=== PATIENT | female | born 1960 | race Caucasian/White ===

== ENCOUNTER → 2018-03-02 | Outpatient (CLI) | payer OTHER ==
[~2018-03-02] MED LIST: CIPR-225 PO; HYDR1TAB PO; OLME1TAB28 PO; POLY119P5 PO; ZLP10T PO
[2018-03-02 06:58] LABS: BUN/CREATININE RATIO 11; CREATININE SERUM 0.81 MG/DL (0.60-1.30); GFR ESTIMATED > 60
== END ==
LOC: RAD 06:20
PROVIDERS: ATTEND Family Medicine
DX: Z53.8 Procedure and treatment not carried out for other reasons (principal); M54.16 Radiculopathy, lumbar region
CPT/HCPCS: 36415; 82565; 84520

== ENCOUNTER → 2018-03-09 | Outpatient (CLI) | payer OTHER ==
[~2018-03-09] MED LIST changes: +IOHEXOL 350 MG/ML 100 ML (OMNIPAQUE 350) VIAL IV ONE; +NS 250 ML (IVPB) BAG IV ONE
[2018-03-09 08:23] LABS: BUN/CREATININE RATIO 18; CREATININE SERUM 0.87 MG/DL (0.60-1.30); GFR ESTIMATED > 60
--- NOTE | 2018-03-09 09:13 | Diagnostic Imaging Report ---
PROCEDURE: CT neck soft tissue with contrast. TECHNIQUE: Multiple contiguous axial images were obtained through the neck after the administration of contrast. INDICATION: Scratchiness and pain in the throat. Comparison is made with prior CT soft tissue neck on 05/06/2010. The visualized intracranial structures are unremarkable. The posterior nasopharynx and oropharynx are unremarkable. Parapharyngeal fat planes are preserved. Larynx grossly unremarkable. The thyroid gland appears to be very small. Submandibular and parotid glands appear to be symmetric bilaterally. Normal-sized lymph nodes in the jugulodigastric region are noted. Posterior cervical chain is unremarkable. No fluid collection is seen. IMPRESSION: Essentially unremarkable CT of the soft tissues of the neck. Dictated by: Dictated on workstation # [id number]
== END ==
LOC: RAD 07:57
PROVIDERS: ATTEND Otolaryngology Otolaryngology/Facial Plastic Surgery
DX: S10.11XA Abrasion of throat, initial encounter (principal); J38.1 Polyp of vocal cord and larynx; J38.7 Other diseases of larynx
CPT/HCPCS: 36415; 70491; 82565; 84520

== ENCOUNTER → 2018-03-29 | Outpatient (CLI) | payer OTHER ==
[~2018-03-29] MED LIST changes: -IOHEXOL 350 MG/ML 100 ML (OMNIPAQUE 350) VIAL IV ONE; -NS 250 ML (IVPB) BAG IV ONE
== END ==
LOC: PREOP 12:47
PROVIDERS: ATTEND Otolaryngology Otolaryngology/Facial Plastic Surgery
DX: Z01.818 Encounter for other preprocedural examination (principal); J38.7 Other diseases of larynx

== ENCOUNTER 2018-03-30 06:20 | Day surgery (SDC) | payer OTHER ==
[~2018-03-30] VITALS: Ht 167.6 cm; Wt 86.2 kg
--- NOTE | 2018-03-30 06:59 | Progress Note-Pre Operative ---
Pre-Operative Progress Note H&P Reviewed The H&P was reviewed, patient examined and no changes noted. Date Seen by Provider: Mar 30, 2018 Time Seen by Provider: 06:45 Date H&P Reviewed: Mar 30, 2018 Time H&P Reviewed: 06:45 Pre-Operative Diagnosis: Epiglottic Lesion ORTEGA BLAIR MD Mar 30, 2018 6:59 am
[2018-03-30] MEDS ORDERED: LIDOCAINE/EPI 1%-1:200,000 (XYLOCAINE) 10 ML VIAL ONE (07:20)
[2018-03-30 07:39] LABS: BASOPHILS % (AUTO) 1 % (0-10); EOSINOPHILS # (AUTO) 0.1 10^3/uL (0.0-0.3); EOSINOPHILS % (AUTO) 2 % (0-10); HEMATOCRIT 41 % (35-52); HEMOGLOBIN 14.3 G/DL (11.5-16.0); LYMPHOCYTES # (AUTO) 1.6 X 10^3 (1.0-4.0); LYMPHOCYTES % (AUTO) 27 % (12-44); MEAN CORPUSCULAR HEMOGLOBIN 33 PG (25-34); MEAN CORPUSCULAR HGB CONC 35 G/DL (32-36); MEAN CORPUSCULAR VOLUME 95 FL (80-99); MEAN PLATELET VOLUME 10.7 FL (7.4-10.4); MONOCYTES # (AUTO) 0.4 X 10^3 (0.0-1.0); MONOCYTES % (AUTO) 7 % (0-12); NEUTROPHILS # (AUTO) 3.7 X 10^3 (1.8-7.8); NEUTROPHILS % (AUTO) 63 % (42-75); PLATELET COUNT 205 10^3/uL (130-400); RED BLOOD COUNT 4.28 10^6/uL (4.35-5.85); RED CELL DISTRIBUTION WIDTH 13.3 % (10.0-14.5); WHITE BLOOD COUNT 5.8 10^3/uL (4.3-11.0)
[2018-03-30 07:44] VITALS: BP 100/80
[2018-03-30] MEDS ORDERED: LACTATED RINGERS 1,000 ML IV PRN (07:48)
[2018-03-30] MEDS ORDERED: fentaNYL INJECTION 100 MCG/2 ML AMP ONE (07:50)
[2018-03-30] MEDS ORDERED: MIDAZOLAM 2 MG/2 ML (VERSED) VIAL ONE (07:50)
--- NOTE | 2018-03-30 08:35 | Progress Note-Post Operative ---
Post-Operative Progess Note Surgeon (s)/Tubing Supervisor (s) Surgeon ORTEGA BLAIR MD Tubing Supervisor n/a Pre-Operative Diagnosis Epiglottic Lesion Post-Operative Diagnosis same Post-Op Procedure Note Date of Procedure: Mar 30, 2018 Name of Procedure Performed: [id number] laryngoscopy with biopsy of epiglottis Description & Findings Description and Findings: n/a Anesthesia Type get Estimated Blood Loss minimal Packing none. Specimen(s) collected/removed epiglottic biopsy ORTEGA BLAIR MD Mar 30, 2018 8:34 am
[2018-03-30] MEDS ORDERED: DEXAMETHASONE 10 MG/ML (DECADRON) 1 ML VIAL ONE (08:36)
[2018-03-30] MEDS ORDERED: ROCURONIUM 10 MG/ML 5 ML SYRINGE IV ONE (08:36)
[2018-03-30] MEDS ORDERED: GLYCOPYRROLATE 0.2 MG/ML (ROBINUL) 2 ML VIAL ONE (08:36)
[2018-03-30] MEDS ORDERED: LIDOCAINE PF 2% 5 ML (XYLOCAINE) VIAL ONE (08:36)
[2018-03-30] MEDS ORDERED: ONDANSETRON 4 MG/2 ML (SDV) Z0FRAN ONE (08:36)
[2018-03-30] MEDS ORDERED: NEOSTIGMINE 1 MG/ML 5 ML SYRINGE ONE (08:36)
[2018-03-30] MEDS ORDERED: proPOfol 200 MG/20 ML (DIPRIVAN) VIAL IV ONE (08:36)
[2018-03-30] MEDS ORDERED: SEVOFLURANE (ULTANE) 15 ML INHAL SOLN ONE (08:36)
[2018-03-30] MEDS ORDERED: ACETAMINOPHEN 325 MG TABLET PO PRN (08:45)
[2018-03-30] MEDS ORDERED: PROMETHAZINE INJ 25 MG/ML (PHENERGAN) AMP IV PRN (08:45)
[2018-03-30] MEDS ORDERED: HYDROcodone/APAP 5 MG/325 MG (LORTAB) TAB PO PRN (08:45)
[2018-03-30] MEDS ORDERED: ONDANSETRON 4 MG/2 ML (SDV) Z0FRAN IVP PRN (09:00)
[2018-03-30] MEDS ORDERED: morphine INJ 10 MG/ML 1ML (SYR OR VIAL) IVP PRN (09:00)
[2018-03-30] MEDS: morphine INJ 10 MG/ML 1ML (SYR OR VIAL) IVP PRN ×2 (09:20→09:25)
[2018-03-30 10:00] VITALS: BP 123/84
[2018-03-30 10:30] VITALS: BP 114/53
[2018-03-30 11:00] VITALS: BP 122/52
[2018-03-30 11:40] VITALS: BP 122/52
[2018-03-30 11:44] VITALS: BP 122/52
--- NOTE | 2018-03-30 13:14 | Anesthesia-General Post-Op ---
General Patient Condition Mental Status/LOC: Same as Preop Cardiovascular: Satisfactory Nausea/Vomiting: Absent Respiratory: Satisfactory Pain: Controlled Complications: Absent Post Op Complications Complications None Follow Up Care/Instructions Patient Instructions None needed. Anesthesia/Patient Condition Patient Condition Patient is doing well, no complaints, stable vital signs, no apparent adverse anesthesia problems. No complications reported per nursing. VERNELL RENDON CRNA Mar 30, 2018 13:14
--- OUTSIDE RECORDS SUMMARY | 2018-03-31 03:29 | XMS REPORT | Continuity of Care Document ---
Author Author [facility] Organization [facility] Address Unknown Phone Unavailable Allergies Active Description Code Type Severity Reaction Onset Reported/Identified Relationship to Patient Clinical Status Yes No Known Drug Allergies [id number] Drug Allergy Unknown N/A 08/13/2007 Medications There is no data. Problems Date Dx Coded Attending Type Code Diagnosis Diagnosed By 11/21/2014 DENNIS BURCH MD Ot 244.9 11/21/2014 DENNIS BURCH MD Ot 278.01 11/21/2014 DENNIS BURCH MD Ot 401.9 11/21/2014 DENNIS BURCH MD Ot V72.81 12/04/2014 DENNIS BURCH MD Ot 244.9 12/04/2014 DENNIS BURCH MD Ot 278.01 12/04/2014 DENNIS BURCH MD Ot 401.9 12/04/2014 DENNIS BURCH MD Ot V72.81 11/04/2015 Ot 796.4 11/04/2015 Ot 242.90 11/04/2015 DENNIS BURCH MD Ot 244.9 11/04/2015 DENNIS BURCH MD Ot 278.01 11/04/2015 DENNIS BURCH MD Ot 401.9 11/04/2015 DENNIS BURCH MD Ot V72.81 11/04/2015 Ot 796.4 11/04/2015 Ot 242.90 11/04/2015 DENNIS BURCH MD Ot 244.9 11/04/2015 DENNIS BURCH MD Ot 278.01 11/04/2015 DENNIS BURCH MD Ot 401.9 11/04/2015 DENNIS BURCH MD Ot V72.81 11/04/2015 JAIRO FERNANDEZ, MITZI Auguste Ot F17.210 NICOTINE DEPENDENCE, CIGARETTES, UNCOMPL 11/04/2015 MITZI GILL MD Ot K59.00 CONSTIPATION, UNSPECIFIED 11/04/2015 MITZI GILL MD Ot N39.0 URINARY TRACT INFECTION, SITE NOT SPECIF 04/28/2016 Ot 796.4 ABN CLINICAL FINDING NEC 04/28/2016 Ot 242.90 THYROTOX NOS NO CRISIS 04/28/2016 DENNIS BURCH MD Ot 244.9 HYPOTHYROIDISM NOS 04/28/2016 DENNIS BURCH MD Ot 278.01 MORBID OBESITY 04/28/2016 DENNIS BURCH MD Ot 401.9 HYPERTENSION NOS 04/28/2016 DENNIS BURCH MD Ot V72.81 [id number] CARDIOVASCULAR 04/29/2016 Ot 796.4 ABN CLINICAL FINDING NEC 04/29/2016 Ot 242.90 THYROTOX NOS NO CRISIS 04/29/2016 DENNIS BURCH MD Ot 244.9 HYPOTHYROIDISM NOS 04/29/2016 DENNIS BURCH MD Ot 278.01 MORBID OBESITY 04/29/2016 DENNIS BURCH MD Ot 401.9 HYPERTENSION NOS 04/29/2016 DENNIS BURCH MD Ot V72.81 [id number] CARDIOVASCULAR 02/21/2018 DENNIS BURCH MD Ot 244.9 HYPOTHYROIDISM NOS 02/21/2018 DENNIS BURCH MD Ot 278.01 MORBID OBESITY 02/21/2018 DENNIS BURCH MD Ot 401.9 HYPERTENSION NOS 02/21/2018 DENNIS BURCH MD Ot V72.81 [id number]-[id number] CARDIOVASCULAR 02/22/2018 MARIPOSA TREIVNO MD Ot J02.9 ACUTE PHARYNGITIS, UNSPECIFIED 02/22/2018 MARIPOSA TREVINO MD Ot Z87.891 PERSONAL HISTORY OF NICOTINE DEPENDENCE 02/22/2018 MARIPOSA TREVINO MD Ot J02.9 ACUTE PHARYNGITIS, UNSPECIFIED 02/22/2018 MARIPOSA TREVINO MD Ot Z87.891 PERSONAL HISTORY OF NICOTINE DEPENDENCE 03/05/2018 MARIPOSA TREVINO MD Ot M54.16 RADICULOPATHY, LUMBAR REGION 03/05/2018 MARIPOAS TREVINO MD Ot Z53.8 PROCEDURE AND TREATMENT NOT CARRIED OUT 03/08/2018 MARIPOSA TREVINO MD Ot M54.16 RADICULOPATHY, LUMBAR REGION 03/08/2018 MARIPOSA TREVINO MD, Ot Z53.8 PROCEDURE AND TREATMENT NOT CARRIED OUT 03/12/2018 ORTEGA BLAIR MD, Ot J38.1 POLYP OF VOCAL CORD AND LARYNX 03/12/2018 ORTEGA BLAIR MD, Ot J38.7 OTHER DISEASES OF LARYNX 03/12/2018 ORTEGA BLAIR MD Ot S10.11XA ABRASION OF THROAT, INITIAL ENCOUNTER 03/15/2018 ORTEGA BLAIR MD, Ot J38.1 POLYP OF VOCAL CORD AND LARYNX 03/15/2018 ORTEGA BLAIR MD, Ot J38.7 OTHER DISEASES OF LARYNX 03/15/2018 ORTEGA BLAIR MD Ot S10.11XA ABRASION OF THROAT, INITIAL ENCOUNTER Procedures There is no data. Results Test Result Range [id number] - 03/02/18 06:35 Serum or plasma urea nitrogen measurement (mass/volume) 9 mg/dL 7-18 Serum or plasma creatinine measurement (mass/volume) 0.81 mg/dL 0.60-1.30 Serum or plasma urea nitrogen/creatinine mass ratio 11 NRG Serum or plasma creatinine measurement with calculation of estimated glomerular filtration rate > NRG [id number] - 03/09/18 08:06 Serum or plasma urea nitrogen measurement (mass/volume) 16 mg/dL 7-18 Serum or plasma creatinine measurement (mass/volume) 0.87 mg/dL 0.60-1.30 Serum or plasma urea nitrogen/creatinine mass ratio 18 NRG Serum or plasma creatinine measurement with calculation of estimated glomerular filtration rate > NRG Encounters ACCT No. Visit Date/Time Discharge Status Pt. Type Provider Facility Loc./Unit Complaint [id number] 03/09/2018 07:57:00 03/09/2018 23:59:59 CLS Outpatient ORTEGA BLAIR MD [facility] RAD VOCAL CORD POLYPS, EPIGLOTTIS CYST [id number] 03/02/2018 06:20:00 03/02/2018 23:59:59 CLS Outpatient MARIPOSA TREVINO MD [facility] RAD PAIN,RADICULAR,LUMBAR [id number] 02/21/2018 11:49:00 02/21/2018 23:59:59 CLS Outpatient MARIPOSA TREVINO MD [facility] RAD SORE THROAT [id number] 11/04/2015 02:36:00 11/04/2015 05:47:00 DIS Emergency JAIRO FERNANDEZ, MITZI Auguste [facility] ER RT SIDE PAIN [id number] 11/20/2014 11:29:00 11/20/2014 23:59:59 CLS Outpatient MARCIN FERNANDEZ, DENNIS Seo [facility] CARD PREOP CLEARANCE, MILD HTN,MORBID OBESITY, HYPOTHYR [id number] 07/26/2012 08:16:00 Document Registration [id number] 03/22/2012 16:03:00 Document Registration
== END 2018-03-30 11:44 | disposition home or self-care (01) ==
LOC: SDC 06:20
PROVIDERS: ATTEND Otolaryngology Otolaryngology/Facial Plastic Surgery
DX: C32.1 Malignant neoplasm of supraglottis (principal); G47.33 Obstructive sleep apnea (adult) (pediatric); F17.210 Nicotine dependence, cigarettes, uncomplicated
CPT/HCPCS: 36415; 85025; 87081; 93005

== ENCOUNTER → 2018-04-10 | Outpatient (CLI) | payer OTHER ==
--- NOTE | 2018-04-10 15:37 | Diagnostic Imaging Report ---
INDICATION: Squamous cell carcinoma of the epiglottis, initial staging. Serum blood glucose level at the time of injection was 91 mg/dL. Patient was administered 14 mCi F18-FDG intravenously in the right antecubital location and PET imaging was performed from the top of the skull through the mid thighs. Noncontrast CT was also performed for attenuation correction and anatomic correlation. No prior PET CT studies available for comparison. Comparison is made with prior conventional neck CT from 03/09/2018. Symmetric activity within the brain is identified. Normal activity within Waldeyer's ring is identified. There appears to be very slight thickening of the epiglottis at the base on the right and low-level activity at this location is seen with SUVmax of approximately 2.6. Normal physiologic activity is identified in the left paravertebral musculature consistent with normal physiologic muscular activity. No hypermetabolic lymph nodes are seen in the neck. No hypermetabolic foci in the chest, abdomen or pelvis is seen. There is physiologic activity in the GI and tracts. IMPRESSION: Very mild thickening of the epiglottis, as described, with low-level hypermetabolism. No hypermetabolic cervical lymphadenopathy is seen to suggest metastatic disease. Dictated by: Dictated on workstation # [id number]
== END ==
LOC: RAD 09:56
PROVIDERS: ATTEND Otolaryngology Otolaryngology/Facial Plastic Surgery
DX: C32.1 Malignant neoplasm of supraglottis (principal)

== ENCOUNTER 2018-06-18 07:41 | Outpatient (RCR) | payer OTHER ==
[2018-04-19 16:44] LABS: BUN/CREATININE RATIO 14; CREATININE SERUM 0.78 MG/DL (0.60-1.30); GFR ESTIMATED > 60
== END 2018-07-11 11:15 | disposition home or self-care (01) ==
LOC: ONC 07:41
PROVIDERS: ATTEND Radiology Radiation Oncology
DX: Z51.0 Encounter for antineoplastic radiation therapy (principal); C10.1 Malignant neoplasm of anterior surface of epiglottis
CPT/HCPCS: 36415; 77295; 77300; 77334; 77336; 77417; 82565; 84520; 99204

== ENCOUNTER 2018-10-18 10:57 | Outpatient (RCR) | payer OTHER ==
[~2018-10-18 10:57] MED LIST changes: -CATHETER FLUSH 10 ML SYR IV PRN; -IOHEXOL 350 MG/ML 100 ML (OMNIPAQUE 350) VIAL IV ONE; -NS 100 ML (IVPB) BAG IV ONE; -RECEIVED CONTRAST (Hold Metformin) IV SCH
[2018-10-18 11:22] LABS: BASOPHILS % (AUTO) 1 % (0-10); EOSINOPHILS # (AUTO) 0.2 10^3/uL (0.0-0.3); EOSINOPHILS % (AUTO) 3 % (0-10); HEMATOCRIT 43 % (35-52); HEMOGLOBIN 14.6 G/DL (11.5-16.0); LYMPHOCYTES # (AUTO) 1.2 X 10^3 (1.0-4.0); LYMPHOCYTES % (AUTO) 21 % (12-44); MEAN CORPUSCULAR HEMOGLOBIN 32 PG (25-34); MEAN CORPUSCULAR HGB CONC 34 G/DL (32-36); MEAN CORPUSCULAR VOLUME 94 FL (80-99); MEAN PLATELET VOLUME 10.4 FL (7.4-10.4); MONOCYTES # (AUTO) 0.4 X 10^3 (0.0-1.0); MONOCYTES % (AUTO) 6 % (0-12); NEUTROPHILS # (AUTO) 4.1 X 10^3 (1.8-7.8); NEUTROPHILS % (AUTO) 70 % (42-75); PLATELET COUNT 240 10^3/uL (130-400); RED CELL DISTRIBUTION WIDTH 12.8 % (10.0-14.5); WHITE BLOOD COUNT 5.9 10^3/uL (4.3-11.0)
[2018-10-18 11:53] LABS: ALANINE AMINOTRANSFERASE 18 U/L (0-55); ALBUMIN 4.4 GM/DL (3.2-4.5); ALKALINE PHOSPHATASE 76 U/L (40-136); BILIRUBIN,TOTAL 0.3 MG/DL (0.1-1.0); BUN/CREATININE RATIO 16; CALCIUM 10.1 MG/DL (8.5-10.1); CARBON DIOXIDE 23 MMOL/L (21-32); CHLORIDE 104 MMOL/L (98-107); CREATININE SERUM 0.88 MG/DL (0.60-1.30); GFR ESTIMATED > 60; GLUCOSE 95 MG/DL (70-105); POTASSIUM 4.3 MMOL/L (3.6-5.0); SODIUM 140 MMOL/L (135-145); TOTAL PROTEIN 7.5 GM/DL (6.4-8.2)
== END 2018-10-24 | disposition home or self-care (01) ==
LOC: ONC 10:57
PROVIDERS: ATTEND Internal Medicine Hematology & Oncology
DX: C10.1 Malignant neoplasm of anterior surface of epiglottis (principal); I10 Essential (primary) hypertension; E03.9 Hypothyroidism, unspecified; M19.91 Primary osteoarthritis, unspecified site; Z79.899 Other long term (current) drug therapy
CPT/HCPCS: 36415; 80053; 85025; 99213; 99214

== ENCOUNTER → 2018-10-18 | Outpatient (CLI) | payer OTHER ==
[~2018-10-18] MED LIST changes: +CATHETER FLUSH 10 ML SYR IV PRN; +IOHEXOL 350 MG/ML 100 ML (OMNIPAQUE 350) VIAL IV ONE; +NS 100 ML (IVPB) BAG IV ONE; +RECEIVED CONTRAST (Hold Metformin) IV SCH
--- NOTE | 2018-10-18 12:44 | Diagnostic Imaging Report ---
CLINICAL INDICATION: Patient had no chest complaints. Patient has history of oral cancer. EXAM: Chest x-ray PA and lateral views. COMPARISONS: Chest x-ray dated 01/27/2017. FINDINGS: Lungs/pleura: Lungs are clear. There is no pneumothorax. There is no pleural effusion. Mediastinum: Unremarkable. Pulmonary vasculature: Unremarkable. Heart: Unremarkable. Bones/extrathoracic soft tissue: There are mildly hypertrophic spurs involving the thoracic spine. Again seen multiple surgical clips overlying the left upper quadrant. IMPRESSION: Stable chest x-ray exam with no interval radiographic evidence of acute cardiopulmonary process. Dictated by: Dictated on workstation # [id number]
--- NOTE | 2018-10-18 13:29 | Diagnostic Imaging Report ---
EXAMINATION: CT of the neck and chest with contrast. INDICATION: Oral cancer. TECHNIQUE: Contiguous axial sections were taken from the midportion of the skull through the diaphragms following administration of intravenous contrast. Sagittal and coronal reconstructed images were also performed. FINDINGS: The previous CT neck exam performed on 03/09/2018 failed to show any abnormality of the neck. The PET/CT exam of 04/10/2018 did note low-level hypermetabolism associated with the epiglottis. On this exam, the epiglottis does seem to be enlarged and the epiglottis and the adjacent tissues to have an edematous appearance. It is my understanding that the patient has recently completed radiation therapy and the appearance of the epiglottis and the. The glottic soft tissues may be secondary to that treatment. The edema of the epiglottis does result in narrowing of the airway, although the airway still remains patent. There is no mass or adenopathy involving the neck. The submandibular and parotid glands appear symmetrical and similar to the prior study. The thyroid gland is small and unchanged when compared to the prior exam. The intracranial contents where visualized show no sign of an acute abnormality. The images through the thorax show that the heart size is within normal limits. The aorta is not abnormally dilated and there is no sign of dissection. There is no defect within the pulmonary arteries to indicate pulmonary embolus. There is no mediastinal or hilar adenopathy. The lungs are clear. There is no sign of failure, pneumonia, or pleural effusion to indicate an acute abnormality. There is no parenchymal lung mass identified either. The sections through the upper abdomen fail to show any sign of an acute abnormality. There are numerous surgical clips about the stomach. There is no obvious breast mass. According to our records, the patient has not had a mammogram since 2006. If the patient has had a recent (within the last year) mammogram elsewhere than no further imaging would be necessary. Otherwise, mammography would be recommended for additional study. The bone windows show no sign of a fracture or of a destructive lesion. IMPRESSION: 1. The epiglottis is enlarged and the epiglottis has an edematous appearance. This may be a sequela of the patient's recent radiation therapy. The airway is narrowed but still patent. 2. There is no mass or adenopathy involving the neck to suggest neoplasm, otherwise. 3. There is no acute cardiopulmonary abnormality evident and there is no sign of neoplastic disease involving the thorax. 4. There are postoperative changes involving the stomach. Dictated on workstation # [id number]
== END ==
LOC: RAD 11:19
PROVIDERS: ATTEND Internal Medicine Hematology & Oncology
DX: C06.9 Malignant neoplasm of mouth, unspecified (principal); J05.10 Acute epiglottitis without obstruction; Z98.890 Other specified postprocedural states
CPT/HCPCS: 70491; 71046; 71260

== ENCOUNTER 2019-01-25 15:31 | Outpatient (RCR) | payer OTHER ==
[2019-04-26 15:50] LABS: BASOPHILS % (AUTO) 0 % (0-10); EOSINOPHILS # (AUTO) 0.1 10^3/uL (0.0-0.3); EOSINOPHILS % (AUTO) 2 % (0-10); HEMATOCRIT 44 % (35-52); HEMOGLOBIN 14.9 G/DL (11.5-16.0); LYMPHOCYTES # (AUTO) 1.4 X 10^3 (1.0-4.0); LYMPHOCYTES % (AUTO) 25 % (12-44); MEAN CORPUSCULAR HEMOGLOBIN 32 PG (25-34); MEAN CORPUSCULAR HGB CONC 34 G/DL (32-36); MEAN CORPUSCULAR VOLUME 94 FL (80-99); MEAN PLATELET VOLUME 10.3 FL (7.4-10.4); MONOCYTES # (AUTO) 0.5 X 10^3 (0.0-1.0); MONOCYTES % (AUTO) 9 % (0-12); NEUTROPHILS # (AUTO) 3.6 X 10^3 (1.8-7.8); NEUTROPHILS % (AUTO) 64 % (42-75); PLATELET COUNT 238 10^3/uL (130-400); RED CELL DISTRIBUTION WIDTH 13.3 % (10.0-14.5); WHITE BLOOD COUNT 5.6 10^3/uL (4.3-11.0)
[2019-04-26 16:02] LABS: ALBUMIN 4.4 GM/DL (3.2-4.5); BILIRUBIN,TOTAL 0.3 MG/DL (0.1-1.0); CALCIUM 9.6 MG/DL (8.5-10.1); CREATININE SERUM 0.95 MG/DL (0.60-1.30); POTASSIUM 4.3 MMOL/L (3.6-5.0); TOTAL PROTEIN 7.5 GM/DL (6.4-8.2)
== END 2019-04-25 | disposition home or self-care (01) ==
LOC: ONC 15:31
PROVIDERS: ATTEND Internal Medicine Hematology & Oncology
DX: C10.1 Malignant neoplasm of anterior surface of epiglottis (principal); I10 Essential (primary) hypertension; E03.9 Hypothyroidism, unspecified; M19.91 Primary osteoarthritis, unspecified site; Z79.899 Other long term (current) drug therapy
CPT/HCPCS: 99213

== ENCOUNTER → 2019-04-26 | Outpatient (CLI) | payer OTHER ==
[2019-04-26 15:50] LABS: BASOPHILS % (AUTO) 0 % (0-10); EOSINOPHILS # (AUTO) 0.1 10^3/uL (0.0-0.3); EOSINOPHILS % (AUTO) 2 % (0-10); HEMATOCRIT 44 % (35-52); HEMOGLOBIN 14.9 G/DL (11.5-16.0); LYMPHOCYTES # (AUTO) 1.4 X 10^3 (1.0-4.0); LYMPHOCYTES % (AUTO) 25 % (12-44); MEAN CORPUSCULAR HEMOGLOBIN 32 PG (25-34); MEAN CORPUSCULAR HGB CONC 34 G/DL (32-36); MEAN CORPUSCULAR VOLUME 94 FL (80-99); MEAN PLATELET VOLUME 10.3 FL (7.4-10.4); MONOCYTES # (AUTO) 0.5 X 10^3 (0.0-1.0); MONOCYTES % (AUTO) 9 % (0-12); NEUTROPHILS # (AUTO) 3.6 X 10^3 (1.8-7.8); NEUTROPHILS % (AUTO) 64 % (42-75); PLATELET COUNT 238 10^3/uL (130-400); RED CELL DISTRIBUTION WIDTH 13.3 % (10.0-14.5); WHITE BLOOD COUNT 5.6 10^3/uL (4.3-11.0)
[2019-04-26 16:02] LABS: ALBUMIN 4.4 GM/DL (3.2-4.5); BILIRUBIN,TOTAL 0.3 MG/DL (0.1-1.0); CALCIUM 9.6 MG/DL (8.5-10.1); CREATININE SERUM 0.95 MG/DL (0.60-1.30); POTASSIUM 4.3 MMOL/L (3.6-5.0); TOTAL PROTEIN 7.5 GM/DL (6.4-8.2)
== END ==
LOC: EDSTATUS 15:14 → ONC 15:32
PROVIDERS: ATTEND Internal Medicine Hematology & Oncology
DX: C10.1 Malignant neoplasm of anterior surface of epiglottis (principal); I10 Essential (primary) hypertension; E03.9 Hypothyroidism, unspecified; M19.91 Primary osteoarthritis, unspecified site; Z79.899 Other long term (current) drug therapy
CPT/HCPCS: 36415; 80053; 85025; 99213

== ENCOUNTER → 2019-07-31 | Outpatient (CLI) | payer OTHER | LOC: ONC 03:45 | PROVIDERS: ATTEND Internal Medicine Hematology & Oncology | DX: C32.1 Malignant neoplasm of supraglottis (principal); I10 Essential (primary) hypertension; D49.7 Neoplasm of unspecified behavior of endocrine glands and other parts of nervous system; M19.90 Unspecified osteoarthritis, unspecified site; E05.00 Thyrotoxicosis with diffuse goiter without thyrotoxic crisis or storm; Z98.890 Other specified postprocedural states; Z80.9 Family history of malignant neoplasm, unspecified; Z98.84 Bariatric surgery status; Z90.49 Acquired absence of other specified parts of digestive tract; Z87.891 Personal history of nicotine dependence | CPT/HCPCS: 99213 ==

== ENCOUNTER → 2019-10-30 | Outpatient (CLI) | payer OTHER ==
[2019-10-30 16:16] LABS: BASOPHILS # (AUTO) 0.1 10^3/uL (0.0-0.1); BASOPHILS % (AUTO) 1 % (0-10); EOSINOPHILS # (AUTO) 0.2 10^3/uL (0.0-0.3); EOSINOPHILS % (AUTO) 2 % (0-10); HEMATOCRIT 44 % (35-52); HEMOGLOBIN 14.9 G/DL (11.5-16.0); LYMPHOCYTES # (AUTO) 1.4 X 10^3 (1.0-4.0); LYMPHOCYTES % (AUTO) 22 % (12-44); MEAN CORPUSCULAR HEMOGLOBIN 32 PG (25-34); MEAN CORPUSCULAR HGB CONC 34 G/DL (32-36); MEAN CORPUSCULAR VOLUME 95 FL (80-99); MEAN PLATELET VOLUME 10.4 FL (7.4-10.4); MONOCYTES # (AUTO) 0.5 X 10^3 (0.0-1.0); MONOCYTES % (AUTO) 7 % (0-12); NEUTROPHILS # (AUTO) 4.2 X 10^3 (1.8-7.8); NEUTROPHILS % (AUTO) 68 % (42-75); PLATELET COUNT 223 10^3/uL (130-400); RED CELL DISTRIBUTION WIDTH 13.7 % (10.0-14.5); WHITE BLOOD COUNT 6.2 10^3/uL (4.3-11.0)
[2019-10-30 16:54] LABS: ALBUMIN 4.2 GM/DL (3.2-4.5); BILIRUBIN,TOTAL 0.2 MG/DL (0.1-1.0); CALCIUM 9.6 MG/DL (8.5-10.1); CREATININE SERUM 1.08 MG/DL (0.60-1.30); POTASSIUM 4.3 MMOL/L (3.6-5.0); TOTAL PROTEIN 7.4 GM/DL (6.4-8.2)
== END ==
LOC: ONC 16:02
PROVIDERS: ATTEND Internal Medicine Hematology & Oncology
DX: D44.0 Neoplasm of uncertain behavior of thyroid gland (principal); I10 Essential (primary) hypertension; Z85.828 Personal history of other malignant neoplasm of skin; Z87.19 Personal history of other diseases of the digestive system; Z86.39 Personal history of other endocrine, nutritional and metabolic disease; Z92.3 Personal history of irradiation
CPT/HCPCS: 80053; 85025; 99213

== ENCOUNTER → 2021-02-11 | Outpatient (CLI) | payer OTHER | LOC: LABNPT 06:49 | PROVIDERS: ATTEND Family Medicine | DX: R11.0 Nausea (principal); Z20.822 Contact with and (suspected) exposure to COVID-19 | CPT/HCPCS: 87636 ==

== ENCOUNTER → 2021-11-04 | Outpatient (CLI) | payer OTHER ==
[2021-11-04 12:12] LABS: CREATININE SERUM 0.9 MG/DL (0.60-1.30)
== END ==
LOC: LAB 11:19
PROVIDERS: ATTEND Family Medicine
DX: J02.9 Acute pharyngitis, unspecified (principal); Z85.818 Personal history of malignant neoplasm of other sites of lip, oral cavity, and pharynx
CPT/HCPCS: 36415; 82565; 84520

== ENCOUNTER → 2021-11-10 | Outpatient (CLI) | payer OTHER ==
[~2021-11-10] MED LIST changes: +CATHETER FLUSH 10 ML SYR IV PRN; +HOLD METFORMIN - RECEIVED CONTRAST 20 ML VIAL IV SCH; +IOHEXOL 350 MG/ML 100 ML (OMNIPAQUE 350) VIAL IV ONE; +NS 100 ML (IVPB) BAG IV ONE
--- NOTE | 2021-11-10 08:37 | Diagnostic Imaging Report ---
PROCEDURE: CT neck soft tissue with contrast. TECHNIQUE: Multiple contiguous axial images were obtained through the neck after the administration of contrast. Auto Exposure Controls were utilized during the CT exam to meet ALARA standards for radiation dose reduction. INDICATION: History of epiglottic cancer. Sore throat. COMPARISON: 10/18/2018. FINDINGS: There is generalized soft tissue thickening and fullness of the epiglottis and aryepiglottic folds. No discrete enhancing mass is seen. There is relative narrowing of the airway in the hypopharynx. The nasopharynx and oropharynx are unremarkable. The parapharyngeal fat planes are preserved. No prevertebral or retropharyngeal fluid collections. The parotid, submandibular and thyroid gland are unremarkable. No pathologically enlarged cervical lymph nodes are evident. No focal inflammatory changes are demonstrated. No soft tissue mass or fluid collection demonstrated. The vascular structures the neck demonstrate no evidence of high-grade stenosis on this nondedicated exam. The visualized lung apices are clear. The visualized intracranial contents demonstrate no evidence of pathologic intracranial enhancement or intracranial mass effect. Visualized orbital contents are unremarkable. The visualized paranasal sinuses are clear. The mastoids and middle ears are clear. No acute osseous abnormality in the cervical spine. IMPRESSION: 1. Soft tissue thickening involving the epiglottis and aryepiglottic folds, similar to the prior exam and favored to represent posttreatment changes. No discrete enhancing mass is identified. Recommend correlation with physical exam and if indicated direct visualization of the hypopharynx. 2. Relative airway narrowing at the hypopharynx. 3. No pathologically enlarged lymphadenopathy in the neck. Dictated by: Dictated on workstation # [id number]
== END ==
LOC: RAD 08:15
PROVIDERS: ATTEND Family Medicine
DX: J02.9 Acute pharyngitis, unspecified (principal); Z85.21 Personal history of malignant neoplasm of larynx
CPT/HCPCS: 70491

== ENCOUNTER 2023-04-27 10:25 | Emergency (ER) | payer OTHER ==
[~2023-04-27] VITALS: Ht 167.7 cm; Wt 88.4 kg
[~2023-04-27 10:25] MED LIST changes: -CATHETER FLUSH 10 ML SYR IV PRN; -HOLD METFORMIN - RECEIVED CONTRAST 20 ML VIAL IV SCH; -IOHEXOL 350 MG/ML 100 ML (OMNIPAQUE 350) VIAL IV ONE; -NS 100 ML (IVPB) BAG IV ONE
[2023-04-27 10:58] LABS: BASOPHILS % (AUTO) 1 % (0-10); EOSINOPHILS % (AUTO) 1 % (0-10); HEMATOCRIT 44 % (35-52); HEMOGLOBIN 14.3 g/dL (11.5-16.0); LYMPHOCYTES # (AUTO) 2.3 10^3/uL (1.0-4.0); LYMPHOCYTES % (AUTO) 36 % (12-44); MEAN CORPUSCULAR HEMOGLOBIN 31 pg (25-34); MEAN CORPUSCULAR HGB CONC 33 g/dL (32-36); MEAN CORPUSCULAR VOLUME 94 fL (80-99); MEAN PLATELET VOLUME 10.5 fL (9.0-12.2); MONOCYTES # (AUTO) 0.8 10^3/uL (0.0-1.0); MONOCYTES % (AUTO) 13 % (0-12); NEUTROPHILS # (AUTO) 3.3 10^3/uL (1.8-7.8); NEUTROPHILS % (AUTO) 50 % (42-75); PLATELET COUNT 200 10^3/uL (130-400); WHITE BLOOD COUNT 6.5 10^3/uL (4.3-11.0)
[2023-04-27 11:08] LABS: ALANINE AMINOTRANSFERASE 19 U/L (0-55); ALBUMIN 4.1 GM/DL (3.2-4.5); ALKALINE PHOSPHATASE 87 U/L (40-136); BILIRUBIN,TOTAL 0.5 MG/DL (0.1-1.0); BUN/CREATININE RATIO 13; CALCIUM 9.3 MG/DL (8.5-10.1); CARBON DIOXIDE 22 MMOL/L (21-32); CHLORIDE 106 MMOL/L (98-107); CREATININE SERUM 0.79 MG/DL (0.60-1.30); GFR ESTIMATED 83; GLUCOSE 105 MG/DL (70-105); MAGNESIUM 2.1 MG/DL (1.6-2.4); PROTHROMBIN TIME PATIENT 12.9 SEC (12.2-14.7); SODIUM 139 MMOL/L (135-145); TOTAL PROTEIN 7.4 GM/DL (6.4-8.2)
[2023-04-27] MEDS ORDERED: fentaNYL INJECTION 100 MCG/2 ML VIAL IVP ONE (11:15)
--- NOTE | 2023-04-27 11:29 | ED Chest Pain ---
General Chief Complaint: Chest Pain Stated Complaint: HARD TIME BREATHING, POSSIBLE CHEST PAINS History of Present Illness Date Seen by Provider: Apr 27, 2023 Time Seen by Provider: 10:36 Allergies and Home Medications Allergies Coded Allergies: No Known Drug Allergies (Unverified , 08/13/07) Patient Home Medication List Home Medication List Reviewed: Yes Ciprofloxacin HCl (Cipro) 500 Mg Tablet, 500 MG PO BID Prescribed by: MITZI RUBALCAVA on 11/04/15 0541 Hydrocodone Bit/Acetaminophen (Vicodin 5-500 Tablet) 1 Each Tablet, 1-2 EACH PO Q4HR PRN, (Reported) Entered as Reported by: EL MONK on 05/14/10 1057 Olmesartan Med/Amlodipine/Hctz (Tribenzor 40-5-25 Mg Tablet) 1 Each Tablet, 1 EACH PO DAILY, (Reported) Entered as Reported by: ABBY FUENTES on 05/06/10 0901 Polyethylene Glycol 3350 (Miralax) 119 Gm Powder, 17 GM PO BID PRN for CONSTIPATION Prescribed by: MITZI RUBALCAVA on 11/04/15 0541 Prednisone (Prednisone) 20 Mg Tab, 40 MG PO DAILY Prescribed by: MITZI RUBALCAVA on 04/27/23 1403 Tramadol HCl (Tramadol HCl) 50 Mg Tablet, 50 MG PO Q6H PRN for PAIN BREAKTROUGH Prescribed by: MITZI RUBALCAVA on 04/27/23 1404 Zolpidem Tartrate (Ambien 10 Mg) 10 Mg Tab, 10 MG PO HS PRN, (Reported) Entered as Reported by: ABBY FUENTES on 05/06/10 0901 Past Hiimruj-Joeetq-Lpkgwy Hx Patient Social History Tobacco Use?: Yes Tobacco type used: Cigarettes Past Medical History Abdominal, Appendectomy Sleep Apnea Currently Using CPAP: No Currently Using BIPAP: No Hypertension Reproductive Disorders: No Sexually Transmitted Disease: No Hypothyroidsim Physical Exam Vital Signs Vital Signs - First Documented 04/27/23 10:30 Temp 37.3 Pulse 86 Resp 12 B/P (MAP) 125/80 (95) Pulse Ox 95 O2 Delivery Room Air Capillary Refill : Height, Weight, BMI Height: 5'6.00" Weight: 190lbs. 0.0oz. 86.537701hg; 30.7 BMI Method:Stated Progress/Results/Core Measures Results/Orders Lab Results Laboratory Tests Test 04/27/23 10:38 Range/Units White Blood Count 6.5 4.3-11.0 10^3/uL Red Blood Count 4.64 3.80-5.11 10^6/uL Hemoglobin 14.3 11.5-16.0 g/dL Hematocrit 44 35-52 % Mean Corpuscular Volume 94 80-99 fL Mean Corpuscular Hemoglobin 31 25-34 pg Mean Corpuscular Hemoglobin Concent 33 32-36 g/dL Red Cell Distribution Width 13.1 10.0-14.5 % Platelet Count 200 130-400 10^3/uL Mean Platelet Volume 10.5 9.0-12.2 fL Immature Granulocyte % (Auto) 0 % Neutrophils (%) (Auto) 50 42-75 % Lymphocytes (%) (Auto) 36 12-44 % Monocytes (%) (Auto) 13 H 0-12 % Eosinophils (%) (Auto) 1 0-10 % Basophils (%) (Auto) 1 0-10 % Neutrophils # (Auto) 3.3 1.8-7.8 10^3/uL Lymphocytes # (Auto) 2.3 1.0-4.0 10^3/uL Monocytes # (Auto) 0.8 0.0-1.0 10^3/uL Eosinophils # (Auto) 0.0 0.0-0.3 10^3/uL Basophils # (Auto) 0.0 0.0-0.1 10^3/uL Immature Granulocyte # (Auto) 0.0 0.0-0.1 10^3/uL Prothrombin Time 12.9 12.2-14.7 SEC INR Comment 1.0 0.8-1.4 Activated Partial Thromboplast Time 32 24-35 SEC D-Dimer 0.93 H 0.00-0.49 UG/ML Sodium Level 139 135-145 MMOL/L Potassium Level 4.0 3.6-5.0 MMOL/L Chloride Level 106 98-107 MMOL/L Carbon Dioxide Level 22 21-32 MMOL/L Anion Gap 11 5-14 MMOL/L Blood Urea Nitrogen 10 7-18 MG/DL Creatinine 0.79 0.60-1.30 MG/DL Estimat Glomerular Filtration Rate 83 BUN/Creatinine Ratio 13 Glucose Level 105 70-105 MG/DL Calcium Level 9.3 8.5-10.1 MG/DL Corrected Calcium 9.2 8.5-10.1 MG/DL Magnesium Level 2.1 1.6-2.4 MG/DL Total Bilirubin 0.5 0.1-1.0 MG/DL Aspartate Amino Transf (AST/SGOT) 13 5-34 U/L Alanine Aminotransferase (ALT/SGPT) 19 0-55 U/L Alkaline Phosphatase 87 40-136 U/L Myoglobin 23.4 10.0-92.0 NG/ML Troponin I < 0.028 <0.028 NG/ML Total Protein 7.4 6.4-8.2 GM/DL Albumin 4.1 3.2-4.5 GM/DL My Orders Orders - MITZI GILL MD Ekg Tracing (04/27/23 10:29) Cbc With Automated Diff (04/27/23 10:51) Magnesium (04/27/23 10:51) Chest 1 View, Ap/Pa Only (04/27/23 10:51) Comprehensive Metabolic Panel (04/27/23 10:51) Myoglobin Serum (04/27/23 10:51) Protime With Inr (04/27/23 10:51) Partial Thromboplastin Time (04/27/23 10:51) O2 (04/27/23 10:51) Monitor-Rhythm Ecg Trace Only (04/27/23 10:51) Ed Iv/Invasive Line Start (04/27/23 10:51) Troponin I Landy (04/27/23 10:51) Fibrin Degradation Products (04/27/23 11:05) Fentanyl Injection (Fentanyl Injection (04/27/23 11:15) Ct Angio Chest W (R/O Pe) (04/27/23 11:25) Iohexol Injection (Omnipaque 350 Mg/Ml 1 (04/27/23 11:30) Ns (Ivpb) 100 Ml (Sodium Chloride 0.9% 1 (04/27/23 11:30) Ketorolac Injection (Ketorolac Injection (04/27/23 14:00) Medications Given in ED Current Medications Medications Dose Ordered Sig/Sang Route Start Time Stop Time Status Last Admin Dose Admin Fentanyl Citrate 50 mcg ONCE ONCE IVP 04/27/23 11:15 04/27/23 11:16 DC 04/27/23 11:19 50 MCG Iohexol 100 ml ONCE ONCE IV 04/27/23 11:30 04/27/23 11:31 DC 04/27/23 11:41 85 ML Ketorolac Tromethamine 30 mg ONCE ONCE IVP 04/27/23 14:00 04/27/23 14:01 DC 04/27/23 14:03 30 MG Sodium Chloride 100 ml ONCE ONCE IV 04/27/23 11:30 04/27/23 11:31 DC 04/27/23 11:41 80 ML Vital Signs/I&O 04/27/23 10:30 Temp 37.3 Pulse 86 Resp 12 B/P (MAP) 125/80 (95) Pulse Ox 95 O2 Delivery Room Air Progress Progress Note : Time: 11:27 Progress Note I began working this patient's case prior to arrival with a phone call conversation with Dr. FAIRCHILD. I then reviewed her EKG at 1036. Orders were placed 1051. Patient was interviewed and examined at 1058. Work-up including CBC, CMP, magnesium, troponin, myoglobin, EKG, and chest x-ray were all unremarkable by my interpretation. D-dimer was elevated. This is being fo llowed with CT angiogram. Initial ECG Impression Date: Apr 27, 2023 Initial ECG Impression Time: 10:36 Initial ECG Rate: 84 Initial ECG Rhythm: Normal Sinus Initial ECG Intervals: Normal Initial ECG Impression: Normal Comment Normal sinus rhythm with no ST elevation or depression. No abnormal intervals or axis deviation. Departure Impression Primary Impression: Pleuritic chest pain Disposition: 01 HOME, SELF-CARE Condition: Improved Departure-Patient Inst. Decision time for Depature: 13:59 Referrals: JARAD FAIRCHILD DO (PCP) Primary Care Physician Patient Instructions: Pleuritic Chest Pain ED Add. Discharge Instructions: Drink plenty of clear liquids to stay well-hydrated. Use ibuprofen up to 600 mg every 6 hours as needed for primary pain control. Add Tylenol (acetaminophen) up to 1000 mg every 6 hours as needed for additional pain control. If you have severe pain or pain not controlled by over-the- counter medication, add Ultram (tramadol) as prescribed. Ultram may cause drowsiness, so do not drive, operate machinery, or make important decisions while on Ultram. Ultram may also cause constipation, so you may wish to use a stool softener such as Colace while taking it. If your pain is not significantly improved by morning with use of NSAID medications such as ibuprofen, then start the prednisone as prescribed. Take prednisone early in the day to avoid sleep disturbance. Take prednisone and ibuprofen with food or milk to avoid stomach upset. If you smoke, work toward quitting smoking as soon as possible. Return to care in the ER if you have worsening symptoms or develop new symptoms such as fever. Follow-up with your primary care provider next week if symptoms persist. All discharge instructions reviewed with patient and/or family. Voiced understanding. Scripts Tramadol HCl (Tramadol HCl) 50 Mg Tablet 50 MG PO Q6H PRN for PAIN BREAKTROUGH, #8 TAB 0 Refills Prov: MITZI GILL MD 04/27/23 Prednisone (Prednisone) 20 Mg Tab 40 MG PO DAILY, #6 TAB 0 Refills Prov: MITZI GILL MD 04/27/23 Copy Copies To 1: JARAD FAIRCHILD JOSHUA T MD Apr 27, 2023 11:29
[2023-04-27] MEDS ORDERED: IOHEXOL 350 MG/ML 100 ML (OMNIPAQUE 350) VIAL IV ONE (11:30)
[2023-04-27] MEDS ORDERED: NS 100 ML (IVPB) BAG IV ONE (11:30)
--- NOTE | 2023-04-27 11:45 | Diagnostic Imaging Report ---
INDICATION: Dyspnea and chest pain. Single AP view of the chest is obtained with comparison made to study of 10/18/2018. FINDINGS: Heart size and pulmonary vascularity are within normal limits, and the lungs are clear, bilaterally. IMPRESSION: Unremarkable chest. Dictated by: Dictated on workstation # [id number]
--- NOTE | 2023-04-27 12:09 | Diagnostic Imaging Report ---
DATE: April 27, 2023. COMPARISON: Chest radiograph April 27, 2023. CT neck and chest October 18, 2018. INDICATION: 62-year-old female, pleuritic chest pain on the right. Difficulty breathing. FINDINGS: There is no identified pulmonary nodule or lung mass. There is no focal airspace consolidation. There is no pneumothorax. There is no pleural effusion. The central airways are patent. There is no identified pulmonary embolus. The heart is not enlarged. There is no pericardial effusion. There is no abnormally enlarged mediastinal, hilar, or axillary lymph node meeting CT size criteria for adenopathy. There are post operative changes along the greater curvature of the stomach. Additional evaluation of the imaged portions of the upper abdomen is unremarkable. There is no identified acute bony abnormality. IMPRESSION: No identified pulmonary embolus or other acute cardiopulmonary abnormality. Dictated by: Dictated on workstation # [id number]
[2023-04-27] MEDS ORDERED: KETOROLAC INJ 30 MG/ML VIAL IVP ONE (14:00)
[2023-04-27] MEDS ORDERED: TRM50T PO (14:03)
[2023-04-27] MEDS ORDERED: PRD20T PO (14:03)
[2023-04-27 14:15] VITALS: BP 102/61
== END 2023-04-27 14:15 | disposition home or self-care (01) ==
LOC: EDUNIT# 10:25 → ER 10:42
DX: R07.81 Pleurodynia (principal)
CPT/HCPCS: 36415; 71045; 71275; 80053; 83735; 83874; 84484; 85025; 85379; 85610; 85730; 93005; 93041